=== PATIENT | female | born 1945 ===

== ENCOUNTER 2020-04-11 12:51 | Outpatient (REF) | payer OTHER, SELFPAY | END 2020-04-11 12:52 | disposition home or self-care (01) | LOC: HO.HAP 12:51 | PROVIDERS: Visit Provider Internal Medicine | DX: Z13.89 Encounter for screening for other disorder (principal) ==

== ENCOUNTER 2020-06-08 10:30 | Outpatient (REF) | payer OTHER, SELFPAY ==
--- NOTE | 2020-06-08 11:09 | MHC.AU.HFU ---
Hearing Instrument Follow-Up- Binaural Date of Visit: 06/08/20 Right Ear: Golf Professional: Jaimie Model: Keith 1600 ITE-R Serial Number: [id number] Repair Warranty: 06/05/2022 Remake warranty 06/05/2020 Loss and Damage Warranty: 06/05/2022 Battery Size: Rechargeable Color: [place] Type of Wax Guard: HearClear Left Ear: Golf Professional: Adcade Model: Keith 1600 ITE-R Serial Number: [id number] RepairWarranty: 06/05/2022 Remake warranty 06/05/2020 Loss and Damage Warranty: 06/05/2022 Battery Size: Rechargeable Color: [place] Type of Wax Guard: HearClear Follow-Up Summary: Patient arrived to crab picker her hearing aids. They were sent to [facility] to add removal handles, as the patient had significant difficulty putting the instruments in and out of her ears previously. Patient displayed some difficulty with the right side; however, after some practice, patient was able to put the instruments in independently. Recommendations: Hearing instrument follow-up or maintenance as needed. Patient's last audiological evaluation was 08/27/2018. A re-evaluation should be considered this year. Diagnosis Code(s): Primary Diagnosis: H90.3 Bilateral Sensorineural Hearing Loss Signature: Provider: Alfonzo Fuentes, [facility]
== END 2020-06-08 10:31 | disposition home or self-care (01) ==
LOC: HO.HAP 10:30
PROVIDERS: Visit Provider Internal Medicine
DX: Z13.89 Encounter for screening for other disorder (principal)